=== PATIENT | female | born 2000 | race Two or more races ===

== ENCOUNTER 2023-01-21 03:56 | Inpatient (IN) ==
[2023-01-21] MEDS ORDERED: LR 1,000 ML IV 1,000 ML IV ONE (05:40)
[2023-01-21] MEDS ORDERED: D5 LR + PITOCIN 10 UNITS/L 10 UNITS/1,000 ML BAG IV PRN (05:40)
[2023-01-21] MEDS: NUBAIN INJ 20 MG AMP IVP PRN ×2 (05:45→07:05)
[2023-01-21 07:26] VITALS: BMI 28.6
[2023-01-21] MEDS ORDERED: PITOCIN IVP ONE (08:00)
[2023-01-21 08:03] LABS: BLOOD UREA NITROGEN 6 mg/dL (7-18); CALCIUM 8.4 mg/dL (8.5-10.1); CARBON DIOXIDE 22.6 mmol/L (21-32); CHLORIDE 104 mmol/L (98-107); CREATININE 0.46 mg/dL (0.55-1.02); GLUCOSE 84 mg/dL (65-99); POTASSIUM 3.8 mmol/L (3.5-5.1); SODIUM 138 mmol/L (136-145); eGFR NON BLACK RACES > 60 (>60)
[2023-01-21 08:28] LABS: BASOPHILS # (AUTO) 0.1 X10^3/uL (0.0-0.1); BASOPHILS % (AUTO) 1.4 % (0.2-1.0); EOSINOPHILS # (AUTO) 0.4 x10^3/uL (0.0-0.2); EOSINOPHILS % (AUTO) 4.8 % (0.9-2.9); HEMATOCRIT 38.7 % (36.0-47.0); HEMOGLOBIN 13.4 g/dL (12.0-16.0); LYMPHOCYTES % (AUTO) 34.3 % (21.0-51.0); MEAN CORPUSCULAR HEMOGLOBIN 31.7 pg (27.0-34.0); MEAN CORPUSCULAR HGB CONC 34.5 g/dL (33.0-35.0); MEAN CORPUSCULAR VOLUME 91.8 fL (80.0-100.0); MEAN PLATELET VOLUME 8.8 fL (7.4-11.0); MONOCYTES # (AUTO) 0.6 x10^3/uL (0.3-0.8); MONOCYTES % (AUTO) 7.1 % (0.0-13.0); NEUTROPHILS # (AUTO) 4.5 x10^3/uL (2.2-4.8); NEUTROPHILS % (AUTO) 52.4 % (42.0-75.0); PLATELET COUNT 187 X10^3/uL (150.0-450.0); RED BLOOD COUNT 4.22 X10^6/uL (3.5-5.4); RED CELL DISTRIBUTION WIDTH 13.9 % (11.6-16.5); WHITE BLOOD COUNT 8.6 X10^3/uL (3.6-10.0)
[2023-01-21 08:30] LABS: RAPID PLASMA REAGIN NONREACTIVE (NONREACTIVE)
[2023-01-21] MEDS ORDERED: D5 1/2 NS 1,000 ML 1,000 ML with PITOCIN 20 UNITS IV SCH ×2 (09:00)
[2023-01-21] MEDS ORDERED: DERMOPLAST PAIN RELIEF SPRAY TOP PRN (09:11)
[2023-01-21] MEDS ORDERED: MILK OF MAGNESIA PO PRN (09:11)
[2023-01-21] MEDS ORDERED: AMBIEN PO PRN (09:11)
[2023-01-21 09:26] LABS: APPEARANCE,URINE CLEAR (CLEAR); BILIRUBIN,URINE NEGATIVE (NEGATIVE); BLOOD/HEMOGLOBIN,URINE 1+ (NEGATIVE); COLOR,URINE STRAW (YELLOW); GLUCOSE, URINE NEGATIVE (NEGATIVE); KETONES,URINE NEGATIVE (NEGATIVE); LEUKOCYTE ESTERASE ,URINE 1+ (NEGATIVE); NITRITES,URINE NEGATIVE (NEGATIVE); PROTEIN,URINE NEGATIVE (NEGATIVE); UROBILINOGEN,URINE NORMAL (NORMAL)
[2023-01-21 09:27] LABS: BACTERIA,URINE TRACE /HPF (NEGATIVE); RBC,URINE 0-2 /HPF (0-3); SQUAMOUS EPITHELIAL CELL,UR MODERATE /HPF (NEGATIVE)
[2023-01-21 09:28] LABS: AMNISURE ROM TEST NO MEMBRANES RUPTURE (NO RUPTURE)
[2023-01-21] MEDS: PRENATAL PLUS PO SCH (13:45)
[2023-01-21] MEDS: MOTRIN TAB 800 MG PO PRN ×2 (14:26→21:26)
[2023-01-21] MEDS ORDERED: NS 1,000 ML IV 1,000 ML IV ONE (16:53)
[2023-01-21] MEDS ORDERED: NS 1,000 ML IV 1,000 ML ONE (16:54)
[2023-01-22 06:30] LABS: HEMATOCRIT 32.5 % (36.0-47.0); HEMOGLOBIN 11.5 g/dL (12.0-16.0)
[2023-01-22] MEDS: PULMICORT NEB TX 0.5 MG NEB SCH ×2 (09:45→20:15)
[2023-01-22] MEDS: PRENATAL PLUS PO SCH (10:00)
[2023-01-22] MEDS: MOTRIN TAB 800 MG PO PRN (17:50)
[2023-01-23] MEDS: PRENATAL PLUS PO SCH (09:10)
[2023-01-23 09:30] VITALS: BP 95/60; PULSE 68; RESP 18; TEMP 97.6; O2SAT 96
== END 2023-01-23 12:00 | disposition home or self-care (01) | DRG 807 ==
LOC: ER 03:56 → LD 05:26 → MED/SURG 09:44
PROVIDERS: ADMIT Obstetrics & Gynecology Obstetrics; ATTEND Obstetrics & Gynecology Obstetrics
DX: Z37.0 Single live birth; O80 Encounter for full-term uncomplicated delivery; Z3A.39 39 weeks gestation of pregnancy